=== PATIENT | male | born 1965 | race Caucasian/White ===

== ENCOUNTER 2019-09-15 06:05 | Day surgery (SDC) | payer BC ==
[~2019-09-15] VITALS: Ht 185.4 cm; Wt 95.5 kg
[2019-09-15 06:40] VITALS: BP 150/81; PULSE 82; TEMP 98.1
[2019-09-15] MEDS ORDERED: NEXIUM 40MG40 MG PO (06:49)
[2019-09-15 07:43] VITALS: BP 124/83; PULSE 63; TEMP 97.8
--- NOTE | 2019-09-15 07:43 | NUR ---
PATIENT BROUGHT BACK TO BAY 1 PER CART ACCOMPANIED BY ENDO STAFF. PATIENT ALERT AND ORIENTED AND TALKING WITH STAFF. PATIENT AMBULATES FROM CART TO CHAIR WITH STAND BY ASSIST. STEADY GAIT. PATIENT DENIES DISCOMFORT AND NAUSEA. VERBAL REPORT RECEIVED.
--- NOTE | 2019-09-15 07:48 | NUR ---
PATIENT GIVEN COFFEE AND PUDDING. PATIENT ABLE TO SWALLOW WITHOUT PROBLEMS. VSS.
[2019-09-15 08:00] VITALS: BP 119/78; PULSE 68
[2019-09-15 08:14] VITALS: BP 130/76; PULSE 68
--- NOTE | 2019-09-15 08:14 | NUR ---
VSS. PATIENT EATS PUDDING AND DRINKS COFFEE WITHOUT PROBLEMS. PATIENT DENIES DISCOMFORT AND NAUSEA. DISCHARGE INSTRUCTIONS GIVEN VERBAL AND WRITTEN. QUESTIONS ANSWERED AND PATIENT VOICED UNDERSTANDING. IV DC'D CATHETER TIP INTACT AND PRESSURE APPLIED. PATIENT GETS DRESSED.
--- NOTE | 2019-09-15 08:20 | NUR ---
PATIENT DISMISSED PER WHEEL CHAIR WITH FOL[facility]
== END 2019-09-15 08:20 | disposition home or self-care (01) ==
LOC: SDCO 06:05
DX: K22.70 Barrett's esophagus without dysplasia (principal); K22.2 Esophageal obstruction; K44.9 Diaphragmatic hernia without obstruction or gangrene; K21.9 Gastro-esophageal reflux disease without esophagitis; E78.00 Pure hypercholesterolemia, unspecified; Z80.0 Family history of malignant neoplasm of digestive organs; Z79.899 Other long term (current) drug therapy; Z87.891 Personal history of nicotine dependence
CPT/HCPCS: J2704; J7030